=== PATIENT | female | born 1990 | race Caucasian/White ===

== ENCOUNTER 2017-06-08 18:28 | Emergency (ER) | payer OTHER ==
[2017-06-08] MEDS: LIDOCAINE 1% (MDV) 20 ML INJ SC (21:30)
[2017-06-08] MEDS: DIPHTH/TET/ACEL PERTUSS (ADULT) 0.5 ML VIAL IM* (22:23)
[2017-06-08] MEDS: IBUPROFEN 600 MG TAB PO (22:23)
== END 2017-06-08 23:06 | disposition home or self-care (01) ==
LOC: FTE 18:28
DX: S61.211A Laceration without foreign body of left index finger without damage to nail, initial encounter (principal); W26.0XXA Contact with knife, initial encounter; Y92.9 Unspecified place or not applicable; Z23 Encounter for immunization
CPT/HCPCS: 12001; 90471; 90715; 99283-25